=== PATIENT | female | born 1990 | race Caucasian/White ===

== ENCOUNTER 2017-07-02 15:47 | Emergency (ER) | payer MEDICAID ==
[2016-04-17 21:49] VITALS: Wt 88.0 kg
[~2017-07-02] VITALS: Wt 88.0 kg
[~2017-07-02 15:47] MED LIST: AMOX1TAB67 PO; FERR240T9 PO; HYDR-3498 PO; IBUP-1542 PO; PREN-39 PO
[2017-07-02] MEDS ORDERED: SOD CHLORIDE 0.9% 1,000 ML IV ONE (17:00)
[2017-07-02] MEDS ORDERED: ONDANSETRON 4 MG INJ IV STA (17:00)
--- NOTE | 2017-07-02 17:04 | ERA ---
ER Documentation Chief Complaint Date/Time DATE: 07/02/17 TIME: 17:02 Chief Complaint 15 weeks with vomiting HPI The patient is a 26-year-old female, presenting to the ER because of nausea and vomiting ever since he became . She vomited 4 times today mostly flames , denies syncope, near syncope, neck pain, chest pain, dyspnea, abdominal pain, dysuria, diarrhea. She does not smoke nor drink, 3 para 2 Past medical/surgical history: None ROS All systems reviewed and are negative except as per history of present illness. Medications Home Meds Active Scripts Ondansetron (Ondansetron Odt) 4 Mg Tab.rapdis, 4 MG PO Q6H Y for NAUSEA AND/OR VOMITING, #10 TAB Prov:ERICKA CORNEJO MD 07/02/17 Hydrocodone Bit-Acetaminophen* (Smilax*) 5-325 Mg Tab, 1 TAB PO Q6 Y for PAIN, # 20 TAB Prov:MARIA ISABEL LOWERY NP 04/18/16 Ibuprofen* (Motrin*) 600 Mg Tab, 600 MG PO Q6H Y for PAIN AND OR ELEVATED TEMP, #30 TAB Prov:MARIA ISABEL LOWERY [employer]S TE[employer]ER 04/18/16 Reported Medications Amoxicillin-Clavulanate K* (Augmentin*) Unknown Strength Tab, PO TID for 7 Days , TAB 04/17/16 Ferrous Gluconate (Iron) 1 Tab Tablet, 1 TAB PO DAILY 03/05/15 Vits W-Ca,Fe,Fa(<1MG) ( Vitamins) 1 Tab Tablet, 1 TAB PO DAILY 03/05/15 Allergies Allergies: Coded Allergies: No Known Allergy (Unverified , 03/05/15) PMhx/Soc History of Surgery: No Anesthesia Reaction: No Hx Neurological Disorder: No Hx Respiratory Disorders: No Hx Cardiac Disorders: No Hx Psychiatric Problems: No Hx Miscellaneous Medical Probl: No Hx Alcohol Use: Yes (QUIT) Hx Substance Use: No Hx Tobacco Use: Yes Physical Exam Vitals Vital Signs Date Time Temp Pulse Resp B/P Pulse Ox O2 Delivery O2 Flow Rate FiO2 07/02/17 15:58 98.3 76 18 117/59 99 Physical Exam Const: No acute distress. Head: Atraumatic. Eyes: Normal Conjunctiva. ENT: Normal External Ears, Nose and Mouth. Neck: Full range of motion. No meningismus. Resp: Clear to auscultation bilaterally. Cardio: Regular rate and rhythm. Abd: Soft, non distended, normal bowel sounds, non tender. Skin: No petechiae or rashes. Back: No midline or flank tenderness. Ext: No cyanosis, or edema. Neur: Awake and alert. No focal deficit Psych: Normal Mood and Affect. Results 24 hrs Laboratory Tests Test 07/02/17 17:27 Bedside Urine pH (LAB) 7.0 Bedside Urine Protein (LAB) 1+ Bedside Urine Glucose (UA) Negative Bedside Urine Ketones (LAB) Negative Bedside Urine Blood Negative Bedside Urine Nitrite (LAB) Negative Bedside Urine Leukocyte Esterase (L Negative Current Medications Medications (Trade) Dose Ordered Sig/Shea Route PRN Reason Start Time Stop Time Status Last Admin Dose Admin Sodium Chloride (NS) 1,000 ml @ 1,000 mls/hr Q1H ONCE IV 07/02/17 17:00 07/02/17 17:59 DC 07/02/17 17:26 Ondansetron HCl (Zofran Inj) 4 mg ONCE STAT IV 07/02/17 17:00 07/02/17 17:02 DC 07/02/17 17:26 Procedures/MDM MEDICAL MAKING DECISION: The patient is a 26-year-old female, presenting with acute hyperemesis gravidarum. She was treated with 1 L normal saline and Zofran 4 mg IV for nausea with good response The differential diagnoses considered include but are not limited to dehydration , UTI, pneumonia, gastritis Departure Diagnosis: Primary Impression: Hyperemesis gravidarum Condition: Good Comments She was discharged with Zofran ODT I discussed the findings with the patient. I advised the patient to follow-up with the primary physician in about 1-2 days, sooner if needed and return if any concern. ERICKA CORNEJO MD Jul 02, 2017 17:04
[2017-07-02 17:21] LABS: URINE BLOOD (Dip) POC Negative (NEGATIVE)
[2017-07-02] MEDS ORDERED: ONDA4TAB14 PO (17:49)
[2017-07-02 18:55] VITALS: BP 105/58; PULSE 72; RESP 20; TEMP 97
== END 2017-07-02 18:57 | disposition home or self-care (01) ==
LOC: FTE 15:47
DX: O21.0 Mild hyperemesis gravidarum (principal); Z3A.15 15 weeks gestation of pregnancy; Z87.891 Personal history of nicotine dependence
CPT/HCPCS: 81003; 96374; J2405; J7030; Z7502

== ENCOUNTER 2017-12-17 07:01 | Inpatient (IN) | END 2017-12-19 16:52 | disposition home or self-care (01) | DRG 775 ==

== ENCOUNTER 2018-04-18 06:24 | Day surgery (SDC) | END 2018-04-18 11:00 | disposition home or self-care (01) ==

== ENCOUNTER 2018-12-27 17:00 | Emergency (ER) | payer MEDICAID ==
[~2018-12-27] VITALS: Ht 165.1 cm; Wt 91.0 kg
[2018-12-27 17:07] VITALS: Ht 165.1 cm; Wt 91.0 kg
[2018-12-27] MEDS ORDERED: ACETAMINOPHEN 325 MG TAB PO STA (19:37)
[2018-12-27] MEDS ORDERED: SOD CHLORIDE 0.9% 500 ML IV STA (19:37)
[2018-12-27] MEDS ORDERED: ONDANSETRON 4 MG INJ IV STA (21:00)
[2018-12-27] MEDS ORDERED: PROCHLORPERAZINE 10 MG INJ IV STA (21:00)
[2018-12-27] MEDS ORDERED: KETOROLAC 30 MG INJ IV STA (21:00)
[2018-12-27] MEDS ORDERED: IBUP-1542 PO (22:04)
[2018-12-27 22:15] VITALS: BP 116/61; PULSE 79; RESP 18
--- NOTE | 2018-12-28 17:33 | ERD ---
ER Documentation Chief Complaint Chief Complaint FEVER , COUGH , HEADACHE X 4 DAYS , CHEST HURTS WITH COUGH HPI This is a 28 year healthy female with no significant past medical history who presents to the ED with complaints a fever, cough and chest congestion for the past 4 days. Cough is worse at nighttime and associated with clear phlegm. Patient also endorses a mild, frontal throbbing headache, lack of appetite and body aches. Tmax of 100F which patient has been controlling with Tylenol. She is currently afebrile. Patient states she is a mother of two kids who have also been sick with similar symptoms. She denies any nausea, vomiting, abdominal pain, shortness of breath, chest pain or any other symptoms. Non smoker, non etoh user. ROS All systems reviewed and are negative except as per history of present illness. Medications Home Meds Active Scripts Ibuprofen* (Ibuprofen*) 600 Mg Tablet, 600 MG PO Q6, #30 TAB Prov:MARCELLEDIONYGILDA SNELLSHEFALI Ramsey PA-C 12/27/18 Allergies Allergies: Coded Allergies: No Known Allergy (Unverified , 04/18/18) PMhx/Soc History of Surgery: Yes (,Tubal Ligation) Anesthesia Reaction: No Hx Neurological Disorder: No Hx Respiratory Disorders: No Hx Cardiac Disorders: No Hx Psychiatric Problems: No Hx Miscellaneous Medical Probl: No Hx Alcohol Use: No Hx Substance Use: No Hx Tobacco Use: No Smoking Status: Never smoker FmHx Family History: No diabetes Physical Exam Vitals Vital Signs Date Temp Pulse Resp B/P (MAP) Pulse Ox O2 O2 Flow FiO2 Time Delivery Rate 12/27/18 98.6 79 18 116/61 97 Room Air 22:15 (79) 12/27/18 98.6 113 18 137/81 100 17:07 (99) Physical Exam Const: No acute distress Head: Atraumatic Eyes: Normal Conjunctiva. EOMI. PERRLA. ENT: Normal External Ears, Nose and Mouth. + Mucous membranes dry. + Mild OP erythema, without tonsillar enlargement and exudates. Bilateral TMs clear. No sinus tenderness. Neck: Full range of motion. No meningismus. Resp: Clear to auscultation bilaterally, no rhonchi, wheezes or rales. Cardio: Regular rate and rhythm, no murmurs Abd: Soft, non tender, non distended. Normal bowel sounds Skin: No petechiae or rashes Back: No midline or flank tenderness Ext: No cyanosis, or edema Neuro: M/S: alert and oriented Face: EOMI, face and pharynx with normal sensation and function Motor: Normal strength throughout Sensation: Normal sensation throughout Speech: Normal Cerebel: Normal coordination Normal gait Normal finger to nose DTR: 2+ and symmetric upper/lower extremities Psych: Normal Mood and Affect Results 24 hrs Laboratory Tests Test 12/27/18 20:05 POC Beta HCG, Qualitative NEGATIVE Current Medications Medications Dose Sig/Shea Start Time Status Last (Trade) Ordered Route PRN Stop Time Admin Dose Reason Admin 650 mg ONCE STAT 12/27/18 DC 12/27/18 Acetaminophen PO 19:37 19:58 (Tylenol 12/27/18 19:41 Tab) Sodium 500 ml @ Q1H STAT 12/27/18 DC 12/27/18 Chloride 500 mls/hr IV 19:37 19:58 12/27/18 20:36 10 mg ONCE STAT 12/27/18 DC 12/27/18 Prochlorperaz IV 21:00 21:42 ine 12/27/18 21:02 (Compazine Inj) Ondansetron 4 mg ONCE STAT 12/27/18 DC 12/27/18 HCl (Zofran IV 21:00 21:26 Inj) 12/27/18 21:02 Ketorolac 30 mg ONCE STAT 12/27/18 DC 12/27/18 Tromethamine IV 21:00 21:26 (Toradol) 12/27/18 21:02 Procedures/MDM EMERGENT LABS AND DIAGNOSTIC STUDIES: Influenza: Negative Radiology Results as interpreted by Radiology: PROCEDURE: XR Chest. CLINICAL INDICATION: cough TECHNIQUE: PA and Lateral views of the chest were obtained. COMPARISON: April 17, 2016 FINDINGS: The cardiomediastinal silhouette is within normal limits. The lungs are clear. No signs of pleural fluid or pneumothorax are seen. The osseous structures and soft tissues are unremarkable. IMPRESSION: No evidence for active cardiopulmonary disease. No radiographic evidence for pneumonia. Andrea Garcia Physician Date Time Electronically viewed and signed by Andrea Garcia Physician on 12/27/2018 20:35 Nursing Notes Reviewed. Previous Medical Records requested via the Electronic Health Record. EMERGENCY DEPARTMENT COURSE / MEDICAL DECISION MAKING: Patient is an otherwise healthy 28 year old female who presents to the ED with flu like symptoms. Kids have been home with similar symptoms. Physical exam is unremarkable. Flu swab negative and CXR without any evidence of pneumonia, infiltrative or infectious process. Patient was still complaining of headache status post Tylenol however this improved with IVFs, Zofran, Compazine and Toradol. I have low suspicion for subarachnoid hemorrhage, acute vertebral or carotid dissection, intracranial mass, epidural or subdural hematoma, giant cell arteritis, CVA, encephalitis or meningitis. Headache is likely secondary to patient's viral illness and dehydration. At this time, patient's symptoms have stabilized and she is stable for outaptient care and follow up with PCP in 2 days. Recommend plenty of rest, increasing hydration, tylenol and motrin for aches and pain. Return to the ED for any new or worsening symptoms. DISPOSITION PLAN: We discussed follow up with the patient's primary care doctor within 24 to 48 hours. A list of community clinics have been referred to those who have not yet established care with a PCP. Patient counseled regarding my diagnostic impression and care plan. Prior to discharge all questions answered. Pt agrees with treatment plan and understands strict return precautions. Precautionary instructions provided including instructions to return to the ER if not improving or for any worsening or changing symptoms or concerns. Prior to discharge, patients vital signs have been reviewed SPECIALIST FOLLOW UP RECOMMENDED: None Patient has been advised to follow up with primary care in 1-2 days. Departure Diagnosis: Primary Impression: Flu-like symptoms Additional Impression: Cough Condition: Stable Patient Instructions: Uri, Viral, No Abx (Adult) Referrals: COMMUNITY CLINICS YOU HAVE RECEIVED A MEDICAL SCREENING EXAM AND THE RESULTS INDICATE THAT YOU DO NOT HAVE A CONDITION THAT REQUIRES URGENT TREATMENT IN THE EMERGENCY DEPARTMENT. FURTHER EVALUATION AND TREATMENT OF YOUR CONDITION CAN WAIT UNTIL YOU ARE SEEN IN YOUR DOCTORS OFFICE WITHIN THE NEXT 1-2 DAYS. IT IS YOUR RESPONSIBILITY TO MAKE AN APPOINTMENT FOR FOLOW-UP CARE. IF YOU HAVE A PRIMARY DOCTOR --you should call your primary doctor and schedule an appointment IF YOU DO NOT HAVE A PRIMARY DOCTOR YOU CAN CALL OUR PHYSICIAN REFERRAL HOTLINE AT IF YOU CAN NOT AFFORD TO SEE A PHYSICIAN YOU CAN CHOSE FROM THE FOLLOWING [facility] [address] [facility] [address] [facility] [facility] [address] [facility] [facility] [address] [facility]. [facility] [address] [facility]. [facility] [address] Additional Instructions: Thank you very much for allowing us to participate in your care. Your health and safety is our top priority at [facility]. Call your primary care doctor TOMORROW for an appointment during the next 2-4 days and bring all the information and medications prescribed. Drink plenty of fluids, rest and take the ibuprofen I have prescribed to you for any muscle aches, headaches or fevers If the symptoms get worse and your provider is unavailable, return to the Emergency Department immediately. KEN FINE PA-C Dec 28, 2018 17:23
== END 2018-12-27 22:17 | disposition home or self-care (01) ==
LOC: FTE 17:00
DX: R50.9 Fever, unspecified (principal); R05 Cough; R51 Headache; R09.89 Other specified symptoms and signs involving the circulatory and respiratory systems
CPT/HCPCS: 71046; 81025; 87400; 96374; 96375; J0780; J1885; J2405; J7040; Z7502; Z7610